=== PATIENT | female | born 1960 | race Caucasian/White ===

== ENCOUNTER 2018-11-12 10:32 | Observation (INO) | payer OTHER ==
[~2018-11-12] VITALS: Ht 152.4 cm; Wt 69.5 kg
[~2018-11-12 10:32] MED LIST: ASPI-817 PO; ATOR40TA68 PO; CALC-686 PO; FER325 PO; GLIM4TAB PO; LOSA50TA14 PO; METF100010 PO; OMEP20CA16 PO
[2018-11-12] MEDS ORDERED: ASPIRIN 325 MG TAB PO STA (11:06)
[2018-11-12] MEDS ORDERED: GABA300C16 PO (11:51)
[2018-11-12] MEDS ORDERED: GLIM4TAB PO (11:52)
[2018-11-12] MEDS ORDERED: CALC-385 PO (11:53)
[2018-11-12] MEDS ORDERED: TRAZ-111 PO (11:54)
[2018-11-12] MEDS ORDERED: FAMO20TA18 PO (12:02)
[2018-11-12] MEDS ORDERED: ONDANSETRON 4 MG INJ IV PRN ×2 (12:30→14:30)
[2018-11-12] MEDS ORDERED: ACETAMINOPHEN 325 MG TAB PO PRN ×2 (12:30→14:30)
--- NOTE | 2018-11-12 12:39 | ERD ---
ER Documentation Chief Complaint Chief Complaint r. sided cp since yest HPI 57-year-old female presents the emergency department complaining of chest discomfort. Patient states that beginning yesterday she had the acute onset of a nonspecific central discomfort in her chest that radiates mostly up to the right part of her chest wall. She reports shortness of breath associated with this. Pain is nonexertional non-positional. She reports the pain is moderate. She has no nausea vomiting or diaphoresis associated with the pain, she reports no fevers, chills, sputum production or hemoptysis. ROS All systems reviewed and are negative except as per history of present illness. Medications Home Meds Active Scripts Ferrous Sulfate* (Ferrous Sulfate*) 325 Mg Tabec, 325 MG PO BID, #60 TAB Prov:ERWIN LOPEZ VIDEO GAME DESIGNER 01/21/18 Reported Medications Famotidine* (Famotidine*) 20 Mg Tablet, 20 MG PO BID, #60 TAB 11/12/18 Trazodone Hcl* (Trazodone Hcl*) 50 Mg Tablet, 50 MG PO QHS, #30 TAB 11/12/18 Glimepiride* (Glimepiride*) 4 Mg Tablet, 4 MG PO WITH BREAKFAST DINNE, TAB 11/12/18 Gabapentin* (Gabapentin*) 300 Mg Capsule, 300 MG PO BID, #60 CAP 11/12/18 Metformin Hcl* (Metformin Hcl*) 1,000 Mg Tablet, 1000 MG PO WITH BREAKFAST DINNE, #60 TAB 01/17/18 Losartan Potassium* (Losartan Potassium*) 50 Mg Tablet, 50 MG PO DAILY, TAB 01/17/18 Atorvastatin* (Atorvastatin*) 40 Mg Tablet, 40 MG PO QHS, #30 TAB 01/17/18 Aspirin* (Aspirin* EC) 81 Mg Tablet.dr, 81 MG PO DAILY, TAB 01/17/18 Calcium Carbonate/Vitamin D3 (Calcium 500 mg Chewable Tablet) 1 Each Tab.chew, 1 EACH PO BID, TAB.CHEW 01/17/18 Omeprazole* (Omeprazole*) 20 Mg Capsule.dr, 20 MG PO DAILY, #30 CAP 01/17/18 Discontinued Reported Medications Calcium Carbonate/Vitamin D3 (OYSTER SHELL CALCIUM + D TAB) 1 Each Tablet, 1 EACH PO BID, TAB 11/12/18 Glimepiride* (Glimepiride*) 4 Mg Tablet, 4 MG PO WITH BREAKFAST, TAB 01/17/18 Allergies Allergies: Coded Allergies: No Known Drug Allergy (Verified Allergy, Unknown, 11/12/18) PMhx/Soc History of Surgery: Yes (2006 L breast surgery) Anesthesia Reaction: No Hx Neurological Disorder: No Hx Respiratory Disorders: No Hx Cardiac Disorders: No Hx Psychiatric Problems: No Hx Miscellaneous Medical Probl: Yes (hyperlipidemia, DM, HTN) Hx Alcohol Use: No Hx Substance Use: No Hx Tobacco Use: No Smoking Status: Never smoker FmHx No history of coronary disease Physical Exam Vitals Vital Signs Date Temp Pulse Resp B/P (MAP) Pulse Ox O2 O2 Flow FiO2 Time Delivery Rate 11/12/18 97.6 70 20 163/76 96 10:37 (105) Physical Exam GENERAL: The patient is well developed and appropriate for usual state of health in no apparent distress HEENT: Pupils equal, round, and reactive to light. EOMI. There is no scleral icterus. NECK: C-spine is soft and supple, there is no meningismus. There is no cervical lymphadenopathy. LUNGS: Clear to auscultation bilaterally. There are no rales, wheezes or rhonchi. HEART: Regular rate and rhythm, no murmurs, clicks, rubs or gallops. ABDOMEN: Soft, non-tender, non-distended. There are bowel sounds in all four quadrants. No rebound or guarding. EXTREMITIES: There is no peripheral cyanosis or edema. No focal swelling or erythema. NEURO: The patient moves all four extremities with 5/5 strength. Cranial nerves II - XII are intact. Normal gait. Alert and oriented SKIN: There is no apparent rash or petechiae. HEME/LYMPHATIC: There is no evidence of excessive bruising or lymphedema. PSYCHIATRIC: The patient does not appear anxious or depressed. Result Diagram: 11/12/18 1122 11/12/18 1122 Results 24 hrs Laboratory Tests Test 11/12/18 11:22 White Blood Count 9.9 10^3/ul Red Blood Count 4.09 10^6/ul Hemoglobin 10.2 g/dl Hematocrit 34.0 % Mean Corpuscular Volume 83.1 fl Mean Corpuscular Hemoglobin 24.9 pg Mean Corpuscular Hemoglobin Concent 30.0 g/dl Red Cell Distribution Width 14.6 % Platelet Count 226 10^3/UL Mean Platelet Volume 10.6 fl Immature Granulocytes % 0.400 % Neutrophils % 54.1 % Lymphocytes % 33.2 % Monocytes % 7.7 % Eosinophils % 3.9 % Basophils % 0.7 % Nucleated Red Blood Cells % 0.0 /100WBC Immature Granulocytes # 0.040 10^3/ul Neutrophils # 5.4 10^3/ul Lymphocytes # 3.3 10^3/ul Monocytes # 0.8 10^3/ul Eosinophils # 0.4 10^3/ul Basophils # 0.1 10^3/ul Nucleated Red Blood Cells # 0.0 10^3/ul Sodium Level 139 mmol/L Potassium Level 4.7 mmol/L Chloride Level 102 mmol/L Carbon Dioxide Level 24 mmol/L Anion Gap 13 Blood Urea Nitrogen 10 mg/dl Creatinine 0.70 mg/dl Est Glomerular Filtrat Rate mL/min > 60 mL/min Glucose Level 107 mg/dl Calcium Level 9.3 mg/dl Total Bilirubin 0.5 mg/dl Direct Bilirubin 0.00 mg/dl Indirect Bilirubin 0.5 mg/dl Aspartate Amino Transf (AST/SGOT) 41 IU/L Alanine Aminotransferase (ALT/SGPT) 13 IU/L Alkaline Phosphatase 140 IU/L Troponin I < 0.012 ng/ml Total Protein 8.5 g/dl Albumin 4.6 g/dl Globulin 3.90 g/dl Albumin/Globulin Ratio 1.17 Current Medications Medications Dose Sig/Karl Start Time Status Last (Trade) Ordered Route PRN Stop Time Admin Dose Reason Admin Aspirin 325 mg ONCE STAT 11/12/18 DC 11/12/18 (Aspirin) PO 11:06 11/12/18 11:13 11:07 Ondansetron 4 mg ER BRIDGE 11/12/18 HCl (Zofran PRN IV 12:30 11/13/18 Inj) NAUSEA/VOMITI 12:29 NG 650 mg ER BRIDGE 11/12/18 Acetaminophen PRN PO 12:30 11/13/18 (Tylenol .MILD PAIN 12:29 Tab) 1-3 OR TEMP Procedures/MDM Patient was taken to a room, seen and evaluated. Comfort measures were initiated. Diagnostic tests were ordered and reviewed. 3 LEAD RHYTHM STRIP: Normal sinus rhythm without ectopy EK lead EKG reviewed by myself: Normal Sinus Rhythm Normal Superior and intervals No ST elevation, depression, or T wave inversion Impression: Normal EKG RADIOLOGY: Reviewed with the radiologist CONSULTATION: Hospitalist was notified for admission REEVALUATION: Diagnostic tests were appreciated. Patient is remained asymptomatic. He reports no ongoing significant chest discomfort. MEDICAL DECISION MAKING: Patient presents with chest pain of uncertain etiology. Differential diagnosis considered includes acute myocardial infarction, pulmonary embolism, as well as vascular and pulmonary concerns. I have reviewed the patients clinical risk factors, EKG, lab studies and imaging. Her initial diagnostic tests are reassuring however she has multiple risk factors including her age hypertension cholesterol and diabetes. For this reason, she will be admitted to the hospital for serial troponins for further investigate ischemic heart disease. Departure Diagnosis: Primary Impression: Chest pain Condition: AGUS [place] Nov 12, 2018 12:39
[2018-11-12] MEDS ORDERED: DOCUSATE SODIUM 100 MG CAP PO PRN (14:30)
[2018-11-12] MEDS ORDERED: NITROGLYCERIN (SL) 0.4 MG TAB SL PRN (14:30)
[2018-11-12] MEDS ORDERED: LORAZEPAM 2 MG INJ IV PRN (14:30)
[2018-11-12] MEDS ORDERED: HYDROCODONE/APAP (5/325) TAB PO PRN (14:30)
[2018-11-12] MEDS ORDERED: NACL 0.9% 3 ML SYG IV SCH (14:30)
[2018-11-12] MEDS ORDERED: ALBUTEROL/IPRATROPIUM (NEB) 3 ML AMP HHN PRN (14:30)
[2018-11-12] MEDS ORDERED: morphine 2 MG INJ IV PRN (14:30)
[2018-11-12] MEDS ORDERED: MAGNESIUM HYDROXIDE 30ML CUP PO PRN (14:30)
[2018-11-12] MEDS ORDERED: hydrALAzine 20 MG INJ IV PRN (14:30)
[2018-11-12] MEDS: SOD CHLORIDE 0.45% 1,000 ML IV SCH (15:17)
--- NOTE | 2018-11-12 15:45 | HP ---
Date/Time of Note Date/Time of Note DATE: 11/12/18 TIME: 15:44 Assessment/Plan VTE Prophylaxis SCD applied (from Nsg): No SCD contraindicated: other Pharmacological prophylaxis: heparin Lines/Catheters IV Catheter Type (from Nrsg): Saline Lock Assessment/Plan Hospital Course Assessment and plan: 57-year female past medical history of breast cancer status post radiation treatment many years ago, anemia, diabetes, hypertension, high cholesterol who comes in with chest pain. #Chest pain: Rule out ACS versus musculoskeletal source versus other. -Check troponins every 6 hours x2 more the first 1 was negative. -High-dose aspirin, oxygen, nitroglycerin, morphine as needed -Follow-up TSH, A1c, lipid panel and check 2D echocardiogram # DM -follow-up A1c, sliding scale insulin #Hypertension: Stable -Continue current medications #High cholesterol: Follow-up lipid panel #History of breast cancer: Again monitor for now no present issues Result Diagram: 11/12/18 1122 11/12/18 1122 Results 24hrs Laboratory Tests Test 11/12/18 11:22 White Blood Count 9.9 Red Blood Count 4.09 L Hemoglobin 10.2 L Hematocrit 34.0 L Mean Corpuscular Volume 83.1 Mean Corpuscular Hemoglobin 24.9 L Mean Corpuscular Hemoglobin Concent 30.0 L Red Cell Distribution Width 14.6 #H Platelet Count 226 # Mean Platelet Volume 10.6 H Immature Granulocytes % 0.400 Neutrophils % 54.1 Lymphocytes % 33.2 Monocytes % 7.7 Eosinophils % 3.9 Basophils % 0.7 Nucleated Red Blood Cells % 0.0 Immature Granulocytes # 0.040 H Neutrophils # 5.4 Lymphocytes # 3.3 H Monocytes # 0.8 Eosinophils # 0.4 Basophils # 0.1 Nucleated Red Blood Cells # 0.0 Sodium Level 139 Potassium Level 4.7 Chloride Level 102 Carbon Dioxide Level 24 Anion Gap 13 Blood Urea Nitrogen 10 Creatinine 0.70 Est Glomerular Filtrat Rate mL/min > 60 Glucose Level 107 Calcium Level 9.3 Total Bilirubin 0.5 Direct Bilirubin 0.00 Indirect Bilirubin 0.5 Aspartate Amino Transf (AST/SGOT) 41 Alanine Aminotransferase (ALT/SGPT) 13 Alkaline Phosphatase 140 H Troponin I < 0.012 Total Protein 8.5 H Albumin 4.6 Globulin 3.90 H Albumin/Globulin Ratio 1.17 HPI/ROS Admit Date/Time Admit Date/Time Hx of Present Illness 57-year female past medical history of breast cancer status post radiation treatment many years ago, anemia, diabetes, hypertension, high cholesterol who comes in with chest pain. She describes the pain is somewhat substernal in nature nonradiating. She took Tylenol at home with no relief of symptoms. It has been off and on and frequency. The symptoms have been going on for the last 2 days again off and on. No upper lower GI bleeding, no nausea vomiting, fever chills, diarrhea, constipation. PMH/Family/Social Past Medical History Medications Current Medications Ondansetron HCl (Zofran Inj) 4 mg ER BRIDGE PRN IV NAUSEA/VOMITING; Start 11/12/18 at 12:30; Stop 11/13/18 at 12:29 Acetaminophen (Tylenol Tab) 650 mg ER BRIDGE PRN PO .MILD PAIN 1-3 OR TEMP; Start 11/12/18 at 12:30; Stop 11/13/18 at 12:29 IV Flush (NS 3 ml) 3 ml PER PROTOCOL IV ; Start 11/12/18 at 14:30 Ondansetron HCl (Zofran Inj) 4 mg Q6H PRN IV NAUSEA/VOMITING; Start 11/12/18 at 14:30 Acetaminophen (Tylenol Tab) 650 mg Q6H PRN PO .PAIN 1-3 OR TEMP; Start 11/12/18 at 14:30 Acetaminophen/ Hydrocodone Bitart ([place] (5/325)) 1 tab Q6H PRN PO .MOD PAIN 4- 6; Start 11/12/18 at 14:30 Morphine Sulfate (morphine) 2 mg Q4H PRN IV .SEVERE PAIN 7-10; Start 11/12/18 at 14:30 Docusate Sodium (Colace) 100 mg Q12H PRN PO .CONSTIPATION; Start 11/12/18 at 14:30 Magnesium Hydroxide (Milk Of Mag) 30 ml DAILY PRN PO .CONSTIPATION; Start 11/12/18 at 14:30 Sodium Chloride 1,000 ml @ 75 mls/hr [id number] IV Last administered on 11/12/18at 15:17; Admin Dose 75 MLS/HR; Start 11/12/18 at 14:29 Lorazepam (Ativan) 0.5 mg Q6H PRN IV ANXIETY; Start 11/12/18 at 14:30 Albuterol/ Ipratropium (Duoneb) 3 ml Q4H RESP THERAPY PRN HHN SHORTNESS OF BREATH; Start 11/12/18 at 14:30 Hydralazine HCl (Apresoline) 10 mg Q6H PRN IV ELEVATED BLOOD PRESSURE; Start 11/12/18 at 14:30 Nitroglycerin (Nitroglycerin (Sl Tab) 0.4 Mg) 1 tab Q5M PRN SL ANGINA; Start 11/12/18 at 14:30 Aspirin (Ecotrin) 325 mg DAILY PO ; Start 11/13/18 at 09:00 Diagnostic Test (Pha) (Accu-Chek) 1 ea 02 XX ; Start 11/13/18 at 02:00 Insulin Aspart (Novolog Insulin Pen) NOVOLOG *MILD* ALGORI... Q4 SC ; Start 11/12/18 at 17:00 Atorvastatin Calcium (Lipitor) 40 mg QHS PO ; Start 11/12/18 at 21:00 Famotidine (Pepcid) 20 mg BID PO ; Start 11/12/18 at 21:00 Ferrous Sulfate (Ferrous Sulfate (Ec)) 325 mg BID PO ; Start 11/12/18 at 21:00 Gabapentin (Neurontin) 300 mg BID PO ; Start 11/12/18 at 21:00 Trazodone HCl (Desyrel) 50 mg QHS PO ; Start 11/12/18 at 21:00 Calcium/Vitamin D (Oyster Shell/ Vit-D (500/200)) 1 tab BID PO ; Start 11/12/18 at 21:00 Coded Allergies: No Known Drug Allergy (Verified Allergy, Unknown, 11/12/18) Past Surgical History Past Surgical Hx: other (Left breast surgery) Family History Significant Family History: heart disease Social History Alcohol Use: none Smoking Status: Never smoker Drug Use: none Exam/Review of Systems Vital Signs Vitals Vital Signs Date Temp Pulse Resp B/P (MAP) Pulse Ox O2 O2 Flow FiO2 Time Delivery Rate 11/12/18 74 18 144/81 97 Room Air 14:05 (102) 11/12/18 97.6 10:37 Exam Exam GENERAL: Lying in bed, no acute distress HEENT: Pupils equal, round, and reactive to light. EOMI. There is no scleral icterus. NECK: Supple LUNGS: Clear to auscultation bilaterally. There are no rales, wheezes or rhonchi. HEART: Regular rate and rhythm, no murmurs, clicks, rubs or gallops. ABDOMEN: Soft, non-tender, non-distended. There are bowel sounds in all four quadrants. No rebound or guarding. EXTREMITIES: There is no peripheral cyanosis or edema. No focal swelling or erythema. NEURO: Cranial nerves II - XII are intact. Normal gait. Alert and oriented CRESENCIO TORRES Nov 12, 2018 15:45
[2018-11-12] MEDS: INSULIN ASPART [NOVOLOG] 3 ML PEN SC SCH ×2 (18:05→21:00)
[2018-11-12 20:00] VITALS: PULSE 72
[2018-11-12 20:45] VITALS: PULSE 72; Ht 152.4 cm; Wt 69.5 kg
[2018-11-12] MEDS ORDERED: ATORVASTATIN 40 MG TAB PO SCH (21:00)
[2018-11-12] MEDS ORDERED: traZODone 50 MG TAB PO SCH (21:00)
[2018-11-12] MEDS: GABAPENTIN 300 MG CAP PO SCH (21:42)
[2018-11-12] MEDS: FERROUS SULFATE (EC) 325 MG TAB PO SCH (21:42)
[2018-11-12] MEDS: FAMOTIDINE 20 MG TAB PO SCH (21:43)
[2018-11-12] MEDS: CALCIUM/VITAMIN D (500/200) TAB PO SCH (21:43)
[2018-11-13] VITALS: BP 124/57; PULSE 81; RESP 18
[2018-11-13] MEDS ORDERED: ACCU-CHEK XX SCH ×2 (02:00)
[2018-11-13 03:46] VITALS: BP 139/73; PULSE 76; RESP 18
[2018-11-13] MEDS: SOD CHLORIDE 0.45% 1,000 ML IV SCH ×2 (03:49→06:33)
[2018-11-13 07:15] VITALS: BP 151/77; PULSE 73; RESP 19
[2018-11-13] MEDS: FERROUS SULFATE (EC) 325 MG TAB PO SCH (08:17)
[2018-11-13] MEDS: GABAPENTIN 300 MG CAP PO SCH (08:17)
[2018-11-13] MEDS: CALCIUM/VITAMIN D (500/200) TAB PO SCH (08:17)
[2018-11-13] MEDS: FAMOTIDINE 20 MG TAB PO SCH (08:17)
[2018-11-13] MEDS: INSULIN ASPART [NOVOLOG] 3 ML PEN SC SCH ×2 (08:21→11:45)
[2018-11-13] MEDS ORDERED: ASPIRIN (EC) 325 MG TAB PO SCH (09:00)
--- NOTE | 2018-11-13 11:04 | PDOCDIS ---
Discharge Instructions CONDITION [id number] Patient Condition: [id number] Stable HOME CARE INSTRUCTIONS: [id number] Diet Instructions: [id number] Low Fat /Cholesterol ACTIVITY: [id number] Activity Restrictions: [id number] Slowly Increase Activity Rest between Activity Avoid heavy lifting FOLLOW UP/APPOINTMENTS Follow-up Plan Please take your medications as prescribed, see your doctor in the clinic in the next 1 to 2 weeks. CRESENCIO TORRES Nov 13, 2018 11:04
--- NOTE | 2018-11-13 11:08 | DS ---
Date/Time of Note Date/Time of Note DATE: 11/13/18 TIME: 11:05 Discharge Summary Admission/Discharge Info Admit Date/Time Nov 12, 2018 at 12:26 Discharge Date/Time Discharge Diagnosis #Chest pain: Resolved, ruled out for ACS. # DM -2 A1c equals 6.6 #Hypertension #High cholesterol #History of breast cancer Patient Condition: Stable Hx of Present Illness 57-year female past medical history of breast cancer status post radiation treatment many years ago, anemia, diabetes, hypertension, high cholesterol who comes in with chest pain. She describes the pain is somewhat substernal in nature nonradiating. She took Tylenol at home with no relief of symptoms. It has been off and on and frequency. The symptoms have been going on for the last 2 days again off and on. No upper lower GI bleeding, no nausea vomiting, fever chills, diarrhea, constipation. Hospital Course Patient was admitted to telemetry floor and she ruled out for acute coronary syndrome. Troponins are negative x3. Her chest pain symptoms resolved. She was able to ambulate, tolerated p.o. diet. Vital signs are stable on day of discharge. She had an echocardiogram performed results are still pending by time of discharge summary. Patient will be discharged home today improved condition. See below for full list of discharge medications. Home Meds Active Scripts Ferrous Sulfate* (Ferrous Sulfate*) 325 Mg Tabec, 325 MG PO BID, #60 TAB Prov:ERWIN LOPEZ CABLE SPOOLER 01/21/18 Reported Medications Famotidine* (Famotidine*) 20 Mg Tablet, 20 MG PO BID, #60 TAB 11/12/18 Trazodone Hcl* (Trazodone Hcl*) 50 Mg Tablet, 50 MG PO QHS, #30 TAB 11/12/18 Glimepiride* (Glimepiride*) 4 Mg Tablet, 4 MG PO WITH BREAKFAST DINNE, TAB 11/12/18 Gabapentin* (Gabapentin*) 300 Mg Capsule, 300 MG PO BID, #60 CAP 11/12/18 Metformin Hcl* (Metformin Hcl*) 1,000 Mg Tablet, 1000 MG PO WITH BREAKFAST DINNE, #60 TAB 01/17/18 Losartan Potassium* (Losartan Potassium*) 50 Mg Tablet, 50 MG PO DAILY, TAB 01/17/18 Atorvastatin* (Atorvastatin*) 40 Mg Tablet, 40 MG PO QHS, #30 TAB 01/17/18 Aspirin* (Aspirin* EC) 81 Mg Tablet.dr, 81 MG PO DAILY, TAB 01/17/18 Calcium Carbonate/Vitamin D3 (Calcium 500 mg Chewable Tablet) 1 Each Tab.chew, 1 EACH PO BID, TAB.CHEW 01/17/18 Omeprazole* (Omeprazole*) 20 Mg Capsule.dr, 20 MG PO DAILY, #30 CAP 01/17/18 Discontinued Reported Medications Calcium Carbonate/Vitamin D3 (OYSTER SHELL CALCIUM + D TAB) 1 Each Tablet, 1 EACH PO BID, TAB 11/12/18 Glimepiride* (Glimepiride*) 4 Mg Tablet, 4 MG PO WITH BREAKFAST, TAB 01/17/18 Follow-up Plan Please take your medications as prescribed, see your doctor in the clinic in the next 1 to 2 weeks. Primary Care Provider Care Physician No Primary Time spent on discharge: > 30 minutes Pending Labs Laboratory Tests Test 11/12/18 11:22 11/12/18 18:05 11/12/18 18:38 11/12/18 21:32 White Blood 9.9 Count 10^3/ul (4.8-10 .8) Red Blood 4.09 Count 10^6/ul (4.20-5 .40) Hemoglobin 10.2 g/dl (12.0-16.0 ) Hematocrit 34.0 % (37.0-47.0) Mean 83.1 Corpuscular fl (82.0-101.0) Volume Mean 24.9 Corpuscular pg (29.0-33.0) Hemoglobin Mean 30.0 Corpuscular g/dl (32.0-37.0 Hemoglobin Conc ) ent Red Cell 14.6 Distribution % (11.5-14.5) Width Platelet Count 226 10^3/UL (140-41 5) Mean Platelet 10.6 Volume fl (7.4-10.4) Immature 0.400 Granulocytes % % (0.001-0.429) Neutrophils % 54.1 % (39.0-77.0) Lymphocytes % 33.2 % (15.0-51.0) Monocytes % 7.7 % (0.0-11.0) Eosinophils % 3.9 % (0.0-7.0) Basophils % 0.7 % (0.0-2.0) Nucleated Red 0.0 Blood Cells % /100WBC (0.0-0. 0) Immature 0.040 Granulocytes # 10^3/ul (0.0-0. 031) Neutrophils # 5.4 10^3/ul (1.6-7. 5) Lymphocytes # 3.3 10^3/ul (0.8-2. 9) Monocytes # 0.8 10^3/ul (0.3-0. 9) Eosinophils # 0.4 10^3/ul (0.0-0. 5) Basophils # 0.1 10^3/ul (0.0-0. 1) Nucleated Red 0.0 Blood Cells # 10^3/ul (0.0-0. 0) Sodium Level 139 mmol/L (135-144 ) Potassium 4.7 Level mmol/L (3.5-5.1 ) Chloride Level 102 mmol/L (97-110) Carbon Dioxide 24 Level mmol/L (21-31) Anion Gap 13 (5-13) Blood Urea 10 mg/dl (7-20) Nitrogen Creatinine 0.70 mg/dl (0.44-1.0 0) Est Glomerular > 60 Filtrat mL/min (>60) Rate mL/min Glucose Level 107 mg/dl (70-220) Calcium Level 9.3 mg/dl (8.4-10.2 ) Total 0.5 Bilirubin mg/dl (0.2-1.3) Direct 0.00 Bilirubin mg/dl (0.00-0.2 0) Indirect 0.5 Bilirubin mg/dl (0-1.1) Aspartate Amino 41 IU/L (15-46) Transf (AST/SGO T) Alanine 13 IU/L (13-69) Aminotransferas e (ALT/SGPT) Alkaline 140 Phosphatase IU/L (42-121) Troponin I < 0.012 < 0.012 ng/ml (0.000-0. ng/ml (0.000-0 120) .120) Total Protein 8.5 g/dl (6.1-8.1) Albumin 4.6 g/dl (3.3-4.9) Globulin 3.90 g/dl (1.3-3.2) Albumin/Globuli 1.17 n Ratio Free Thyroxine 1.18 ng/dl (0.64-1.7 9) Bedside 74 88 Glucose mg/dL (70-220) mg/dL (70-220) Creatine 58 Kinase IU/L (23-200) Creatine Kinase 0.4 Index Creatinine < 0.22 Kinase MB ng/ml (0.0-2.4 (Mass) ) Test 11/13/18 00:43 11/13/18 05:32 11/13/18 08:05 Creatine 59 49 Kinase IU/L (23-200) IU/L (23-200) Creatine Kinase 0.4 0.4 Index Creatinine < 0.22 < 0.22 Kinase MB ng/ml (0.0-2.4) ng/ml (0.0-2.4 (Mass) ) Troponin I < 0.012 < 0.012 ng/ml (0.000-0. ng/ml (0.000-0 120) .120) White Blood 7.4 Count 10^3/ul (4.8-1 0.8) Red Blood 3.79 Count 10^6/ul (4.20- 5.40) Hemoglobin 9.2 g/dl (12.0-16. 0) Hematocrit 30.4 % (37.0-47.0) Mean 80.2 Corpuscular fl (82.0-101.0 Volume ) Mean 24.3 Corpuscular pg (29.0-33.0) Hemoglobin Mean 30.3 Corpuscular g/dl (32.0-37. Hemoglobin Conc 0) ent Red Cell 14.6 Distribution % (11.5-14.5) Width Platelet Count 307 10^3/UL (140-4 15) Mean Platelet 9.9 Volume fl (7.4-10.4) Immature 0.300 Granulocytes % % (0.001-0.429 ) Neutrophils % 53.1 % (39.0-77.0) Lymphocytes % 31.8 % (15.0-51.0) Monocytes % 9.8 % (0.0-11.0) Eosinophils % 4.2 % (0.0-7.0) Basophils % 0.8 % (0.0-2.0) Nucleated Red 0.0 Blood Cells % /100WBC (0.0-0 .0) Immature 0.020 Granulocytes # 10^3/ul (0.0-0 .031) Neutrophils # 3.9 10^3/ul (1.6-7 .5) Lymphocytes # 2.3 10^3/ul (0.8-2 .9) Monocytes # 0.7 10^3/ul (0.3-0 .9) Eosinophils # 0.3 10^3/ul (0.0-0 .5) Basophils # 0.1 10^3/ul (0.0-0 .1) Nucleated Red 0.0 Blood Cells # 10^3/ul (0.0-0 .0) Sodium Level 141 mmol/L (135-14 4) Potassium 3.9 Level mmol/L (3.5-5. 1) Chloride Level 103 mmol/L (97-110 ) Carbon Dioxide 27 Level mmol/L (21-31) Anion Gap 11 (5-13) Blood Urea 13 Nitrogen mg/dl (7-20) Creatinine 0.76 mg/dl (0.44-1. 00) Est Glomerular > 60 Filtrat mL/min (>60) Rate mL/min Glucose Level 131 mg/dl (70-220) Hemoglobin A1c 6.6 % (0-5.9) Calcium Level 9.3 mg/dl (8.4-10. 2) Phosphorus 5.2 Level mg/dl (2.5-4.9 ) Magnesium 1.8 Level mg/dl (1.7-2.5 ) Triglycerides 164 Level mg/dl (0-149) Cholesterol 113 Level mg/dl (100-200 ) LDL 45 mg/dl Cholesterol, Calculated HDL 35 Cholesterol mg/dl (35-98) Cholesterol/HDL 3.2 RATIO Ratio Thyroid 3.380 Stimulating MIU/L (0.465-4 Hormone (TSH) .680) Bedside 152 Glucose mg/dL (70-220) CRESENCIO TORRES Nov 13, 2018 11:08
[2018-11-13 11:30] VITALS: BP 130/68; PULSE 81; RESP 18
--- NOTE | 2018-11-14 11:13 | RADRPT ---
Echocardiogram Report Patient Name: BENITEZ VILLARREALPatient ID: [id number] : 1960 (58y )Study Date: 11/12/2018 3:03:34 PM Gender: FAccession #: [id number] Tech: Fareed Juan C [facility] Location: [facility] Ref.Physician: CRESENCIO TORRES Height(Cm): BSA: Weight(Kg): Quality: AdequateOrder Physician: CRESENCIO TORRES Account #: Procedures: Echocardiographic Report: Transthoracic echocardiogram with complete 2D, M-Mode, and doppler examination. Indications: Chest Pain. Measurements: 2D/M Mode Doppler Measurement Value Normal Range Measurement Value Normal Range LVIDd 2D 5.1 [ 3.8 - 5.2 ] cm AV Peak Elías 1.5 [ 100.0 - 170.0 ] cm/sec LVIDs 2D 3.3 [ 2.2 - 3.5 ] cm AV Peak PG 9.0 [ 2.0 - 9.0 ] mmHg LVPWd 2D 1.3 [ 0.6 - 0.9 ] cm LVOT Peak Elías 0.9 [ 70.0 - 110.0 ] cm/sec IVSd 2D 1.3 [ 0.6 - 0.9 ] cm LVOT Peak PG 4.0 [ 2.0 - 6.0 ] mmHg AoR Diam 2D 3.2 [ 2.3 - 3.1 ] cm MV E Peak Elías 0.7 [ 60.0 - 130.0 ] cm/sec EDV 2D 123.0 [ 46.0 - 106.0 ] ml MV A Peak Elías 0.9 [ 100.0 - 120.0 ] cm/sec ESV 2D 43.2 [ 14.0 - 42.0 ] ml MV E/A 0.7 [ 0.8 - 1.5 ] ratio EF 2D 64.9 [ 54.0 - 74.0 ] percent MV Decel Time 194 [ 104 - 258 ] msec LA Dimen 2D 3.3 [ 2.7 - 3.8 ] cm Lat E` Elías 0.1 [ 10.0 - 15.0 ] cm/sec Lateral E/E` 11.2 [ 1.0 - 2.0 ] ratio Med E` Elías 0.1 cm/sec MV E/A 0.7 [ 0.8 - 1.5 ] ratio TR Peak Elías 2.7 [ 100.0 - 280.0 ] cm/sec TR Peak PG 30.0 mmHg RVSP 33.0 [ 10.0 - 36.0 ] mmHg Findings: Left Ventricle: Normal left ventricular systolic function. Normal left ventricular cavity size. Mild concentric left ventricular hypertrophy. Ejection fraction is visually estimated at 65 %. Tissue Doppler/Mitral Doppler indices are consistent with impaired relaxation (Stage I diastolic dysfunction). Right Ventricle: Normal right ventricular size. Normal right ventricular systolic function. Left Atrium: The left atrium is normal in size. Right Atrium: The right atrium is normal in size. Mitral Valve: Mild mitral leaflet calcification. Mild mitral annular calcification. Trace mitral regurgitation. Aortic Valve: No hemodynamically significant aortic stenosis by doppler. Aortic cusps appear mildly calcified. Trace aortic valve regurgitation. Tricuspid Valve: Normal appearance of the tricuspid valve. The estimated Peak RVSP is 33 mmHg. There is mild tricuspid regurgitation. Pericardium: Normal pericardium with no significant pericardial effusion. Aorta: Normal aortic root. IVC: Normal size and normal respiratory collapse consistent with normal right atrial pressure. Conclusions: Normal left ventricular systolic function. Normal left ventricular cavity size. Mild concentric left ventricular hypertrophy. Ejection fraction is visually estimated at 65 %. Tissue Doppler/Mitral Doppler indices are consistent with impaired relaxation (Stage I diastolic dysfunction). Mild mitral leaflet calcification. Mild mitral annular calcification. Trace mitral regurgitation. Normal appearance of the tricuspid valve. The estimated Peak RVSP is 33 mmHg. There is mild tricuspid regurgitation. Electronically Signed By: Dagoberto Mckeon 2018-11-14 11:12:44 PDT
== END 2018-11-13 13:20 | disposition home or self-care (01) ==
LOC: E/R 10:32 → 6WM 12:26 → EDBEDREQ 18:39
PROVIDERS: ADMIT Hospitalist; ATTEND Hospitalist
DX: R07.9 Chest pain, unspecified (principal); E78.5 Hyperlipidemia, unspecified; E11.9 Type 2 diabetes mellitus without complications; I10 Essential (primary) hypertension; E78.00 Pure hypercholesterolemia, unspecified; Z79.82 Long term (current) use of aspirin; Z79.84 Long term (current) use of oral hypoglycemic drugs; Z85.3 Personal history of malignant neoplasm of breast; Z92.3 Personal history of irradiation
CPT/HCPCS: 36415; 71045; 80048; 80053; 80061; 82550; 82553; 82962; 83036; 83735; 84100; 84439; 84443; 84484; 85025; 93005; 93306; 97161; J1815; Z7500; Z7502; Z7610; 99217; G0378